=== PATIENT | male | born 1975 | race Caucasian/White ===

== ENCOUNTER 2016-07-07 07:55 | Inpatient (IN) | payer BC ==
[2016-07-07] MEDS ORDERED: SODIUM CHLORIDE 0.9% 1,000 ML IV STA (08:05)
[2016-07-07] MEDS ORDERED: DILTIAZEM 125 MG in SODIUM CHLORIDE 0.9% 100 ML IV ONE (08:07)
[2016-07-07] MEDS ORDERED: DILTIAZEM 5 MG/ML 5 ML VIAL IVP STA (08:07)
--- NOTE | 2016-07-07 08:09 | ED ---
General Adult HPI - General Chief complaint: Arrhythmia/Palpitations Stated complaint: heart flutter Time Seen by Provider: 07/07/16 08:02 Source: patient, RN notes reviewed Mode of arrival: wheelchair Limitations: no limitations - History of Present Illness Initial comments: Patient is a pleasant 40-year-old male presenting to the emergency Department with palpitations. Onset was around 20 or 30 minutes prior to arrival. Patient has had similar symptoms around 6 times previously. Patient was in the hospital a couple times previously and diagnosed with what he believes was atrial fibrillation however is not completely confident regarding this. Patient denies pain. Patient states he feels slightly short of breath associated with palpitations. No leg pain or leg swelling. - Related Data Home Medications Medication Instructions Recorded Confirmed Gabapentin [Neurontin] 100 mg PO TID 07/07/16 07/07/16 predniSONE See Taper PO DAILY 07/07/16 07/07/16 valACYclovir HCL [Valtrex] 1,000 mg PO TID 07/07/16 07/07/16 Allergies Allergy/AdvReac Type Severity Reaction Status Date / Time No Known Allergies Allergy Verified 07/07/16 08:00 Review of Systems ROS Statement: Those systems with pertinent positive or pertinent negative responses have been documented in the HPI. ROS Other: All systems not noted in ROS Statement are negative. Constitutional: Denies: fever Eyes: Denies: eye pain ENT: Denies: ear pain Respiratory: Reports: dyspnea. Denies: cough Cardiovascular: Reports: palpitations. Denies: chest pain Endocrine: Denies: fatigue Gastrointestinal: Denies: abdominal pain Genitourinary: Denies: dysuria Musculoskeletal: Denies: back pain Skin: Denies: rash Neurological: Denies: weakness Past Medical History Past Medical History: No Reported History History of Any Multi-Drug Resistant Organisms: None Reported Past Surgical History: No Surgical Hx Reported Past Psychological History: No Psychological Hx Reported Smoking Status: Current every day smoker Past Alcohol Use History: Occasional Past Drug Use History: None Reported General Exam Limitations: no limitations General appearance: alert, in no apparent distress Head exam: Present: atraumatic Eye exam: Present: normal appearance, PERRL ENT exam: Present: normal oropharynx Neck exam: Present: normal inspection Respiratory exam: Present: normal lung sounds bilaterally Cardiovascular Exam: Present: tachycardia, irregular rhythm Expanded Peripheral pulses: 2+: Radial (R), Radial (L), Dorsalis Pedis (R), Dorsalis Pedis (L) GI/Abdominal exam: Present: soft. Absent: tenderness Extremities exam: Present: normal inspection. 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 fib with RVR, rate 198. QRS 86. QT to 36. QTc 428. Normal axis. Normal QRS. Nonspecific ST-T. Medical Decision Making - Medical Decision Making Patient reexamined and resting comfortably in bed. Patient updated on results and plan. Case was discussed in detail with Dr. Cadena, who will admit for Dr. Gomes. Patient did receive IV bolus and infusion of Cardizem. Patient will be started on blood thinners. Admission orders written. Consult placed for cardiology. - Lab Data Result diagrams: 07/07/16 08:17 07/07/16 08:17 Lab Results 07/07/16 07/07/16 07/07/16 Range/Units 08:17 08:17 08:17 WBC 12.2 H (3.8-10.6) k/uL RBC 5.46 (4.30-5.90) m/uL Hgb 17.1 (13.0-17.5) gm/dL Hct 51.8 (39.0-53.0) % MCV 94.9 (80.0-100.0) fL MCH 31.3 (25.0-35.0) pg MCHC 32.9 (31.0-37.0) g/dL RDW 13.9 (11.5-15.5) % Plt Count 343 (150-450) k/uL Neutrophils % 65 % Lymphocytes % 26 % Monocytes % 6 % Eosinophils % 1 % Basophils % 0 % Neutrophils # 7.9 H (1.3-7.7) k/uL Lymphocytes # 3.1 (1.0-4.8) k/uL Monocytes # 0.7 (0-1.0) k/uL Eosinophils # 0.2 (0-0.7) k/uL Basophils # 0.1 (0-0.2) k/uL PT (9.0-12.0) sec INR (<1.1) APTT (22.0-30.0) sec Sodium 142 (137-145) mmol/L Potassium 4.2 (3.5-5.1) mmol/L Chloride 104 (98-107) mmol/L Carbon Dioxide 24 (22-30) mmol/L Anion Gap 14 mmol/L BUN 15 (9-20) mg/dL Creatinine 0.91 (0.66-1.25) mg/dL Est GFR (MDRD) Af Amer >60 (>60 ml/min/1.73 sqM) Est GFR (MDRD) Non-Af >60 (>60 ml/min/1.73 sqM) Glucose 100 H (74-99) mg/dL Calcium 10.0 (8.4-10.2) mg/dL Magnesium 1.8 (1.6-2.3) mg/dL Total Bilirubin 0.7 (0.2-1.3) mg/dL AST 32 (17-59) U/L ALT 77 H (21-72) U/L Alkaline Phosphatase 89 (38-126) U/L Total Creatine Kinase 60 (55-170) U/L CK-MB (CK-2) 0.6 (0.0-2.4) ng/mL CK-MB (CK-2) Rel Index 1.0 Troponin I <0.012 (0.000-0.034) ng/mL Total Protein 7.9 (6.3-8.2) g/dL Albumin 4.9 (3.5-5.0) g/dL TSH 1.830 (0.465-4.680) mIU/L Free T4 0.73 L (0.78-2.19) ng/dL 07/07/16 Range/Units 08:17 WBC (3.8-10.6) k/uL RBC (4.30-5.90) m/uL Hgb (13.0-17.5) gm/dL Hct (39.0-53.0) % MCV (80.0-100.0) fL MCH (25.0-35.0) pg MCHC (31.0-37.0) g/dL RDW (11.5-15.5) % Plt Count (150-450) k/uL Neutrophils % % Lymphocytes % % Monocytes % % Eosinophils % % Basophils % % Neutrophils # (1.3-7.7) k/uL Lymphocytes # (1.0-4.8) k/uL Monocytes # (0-1.0) k/uL Eosinophils # (0-0.7) k/uL Basophils # (0-0.2) k/uL PT 9.9 (9.0-12.0) sec INR 1.0 (<1.1) APTT 24.2 (22.0-30.0) sec Sodium (137-145) mmol/L Potassium (3.5-5.1) mmol/L Chloride (98-107) mmol/L Carbon Dioxide (22-30) mmol/L Anion Gap mmol/L BUN (9-20) mg/dL Creatinine (0.66-1.25) mg/dL Est GFR (MDRD) Af Amer (>60 ml/min/1.73 sqM) Est GFR (MDRD) Non-Af (>60 ml/min/1.73 sqM) Glucose (74-99) mg/dL Calcium (8.4-10.2) mg/dL Magnesium (1.6-2.3) mg/dL Total Bilirubin (0.2-1.3) mg/dL AST (17-59) U/L ALT (21-72) U/L Alkaline Phosphatase (38-126) U/L Total Creatine Kinase (55-170) U/L CK-MB (CK-2) (0.0-2.4) ng/mL CK-MB (CK-2) Rel Index Troponin I (0.000-0.034) ng/mL Total Protein (6.3-8.2) g/dL Albumin (3.5-5.0) g/dL TSH (0.465-4.680) mIU/L Free T4 (0.78-2.19) ng/dL - Radiology Data Radiology results: image reviewed (One view chest x-ray shows no acute process.) Critical Care Time Critical Care Time: Yes Total Critical Care Time: 33 Disposition Clinical Impression: Atrial fibrillation with RVR Disposition: ADMITTED IP TO THIS HOSP
[2016-07-07 08:38] LABS: Basophils # (A) 0.1 k/uL (0-0.2); Basophils % (A) 0 %; CH 32.6; CHCM 34.5; Eosinophils # (A) 0.2 k/uL (0-0.7); Eosinophils % (A) 1 %; HCT 51.8 % (39.0-53.0); HDW 2.49; HGB 17.1 gm/dL (13.0-17.5); Luc % (Auto) 3; Lymphocytes # (A) 3.1 k/uL (1.0-4.8); Lymphocytes % (A) 26 %; MCH 31.3 pg (25.0-35.0); MCHC 32.9 g/dL (31.0-37.0); MCV 94.9 fL (80.0-100.0); Mean Platelet Volume 6.9; Monocytes # (A) 0.7 k/uL (0-1.0); Monocytes % (A) 6 %; Neutrophils # (A) 7.9 k/uL (1.3-7.7); Neutrophils % (A) 65 %; Partial Thromboplastin Time 24.2 sec (22.0-30.0); Prothrombin Time 9.9 sec (9.0-12.0); RBC 5.46 m/uL (4.30-5.90); RDW 13.9 % (11.5-15.5); WBC 12.2 k/uL (3.8-10.6); WBC (Perox) 12.45
[2016-07-07 08:45] LABS: ALT 77 U/L (21-72); AST 32 U/L (17-59); Alkaline Phosphatase 89 U/L (38-126); Anion Gap 14 mmol/L; Blood Urea Nitrogen 15 mg/dL (9-20); Carbon Dioxide 24 mmol/L (22-30); Chloride 104 mmol/L (98-107); Glucose 100 mg/dL (74-99); Magnesium 1.8 mg/dL (1.6-2.3); Non-African American GFR(MDRD) >60 (>60 ml/min/1.73 sqM); Potassium 4.2 mmol/L (3.5-5.1); Sodium 142 mmol/L (137-145); Total Bilirubin 0.7 mg/dL (0.2-1.3); Total Protein 7.9 g/dL (6.3-8.2)
[2016-07-07 09:09] LABS: Creatine Kinase 60 U/L (55-170)
--- NOTE | 2016-07-07 09:14 | XR ---
EXAMINATION TYPE: XR chest 1V portable DATE OF EXAM: 07/07/2016 8:54 AM COMPARISON: 01/17/2009 HISTORY: Chest pain TECHNIQUE: Single frontal view of the chest is obtained. FINDINGS: There is no focal air space opacity, pleural effusion, or pneumothorax seen. The cardiac silhouette size is within normal limits. The osseous structures are intact. IMPRESSION: 1. No acute process.
[2016-07-07 09:21] LABS: Creatine Kinase MB 0.6 ng/mL (0.0-2.4); Troponin I <0.012 ng/mL (0.000-0.034)
[2016-07-07] MEDS ORDERED: HEPARIN SODIUM,PORCINE 5,000 UNIT/ML 1 ML VIAL IV PRN (09:35)
[2016-07-07] MEDS ORDERED: HEPARIN SODIUM,PORCINE 5,000 UNIT/ML 1 ML VIAL IV ONE (09:35)
[2016-07-07] MEDS ORDERED: HEPARIN SODIUM,PORCINE/D5W PMX 25,000 UNIT in DEXTROSE/WATER 1 500ML.BAG IV SCH (09:45)
--- NOTE | 2016-07-07 11:46 | ECHOF ---
Referral Reason:a fib MEASUREMENTS -------- HEIGHT: 170.2 cm WEIGHT: 82.1 kg BP: 112/82 RVIDd: 2.7 cm (< 3.3) IVSd: 1.1 cm (0.6 - 1.1) LVIDd: 4.5 cm (3.9 - 5.3) LVPWd: 1.1 cm (0.6 - 1.1) IVSs: 1.6 cm LVIDs: 3.3 cm LVPWs: 1.4 cm LA Diam: 3.5 cm (2.7 - 3.8) LAESV Index (A-L): 14.54 ml/m Ao Diam: 2.9 cm (2.0 - 3.7) AV Cusp: 1.9 cm (1.5 - 2.6) LA Diam: 3.2 cm (2.7 - 3.8) MV EXCURSION: 11.453 mm (> 18.000) MV EF SLOPE: 100 mm/s (70 - 150) EPSS: 0.7 cm FINDINGS -------- Atrial fibrillation. This was a technically good study. There is borderline concentric left ventricular hypertrophy. Overall left ventricular systolic function is normal with, an EF between 55 - 60 %. The right ventricle is normal in size. Normal LA size by volume 22+/-6 ml/m2. The right atrium is normal in size. The aortic valve is trileaflet and appears structurally normal. Mild mitral annular calcification present. Trace tricuspid regurgitation present. Pulmonic valve appears structurally normal. The aortic root size is normal. Normal inferior vena cava with normal inspiratory collapse consistent with estimated right atrial pressure of 5 mmHg. The pericardium is normal. CONCLUSIONS -------- 1. Atrial fibrillation. 2. Trace tricuspid regurgitation present. 3. Pulmonic valve appears structurally normal. 4. The aortic root size is normal. 5. The pericardium is normal. 6. This was a technically good study. 7. There is borderline concentric left ventricular hypertrophy. 8. Overall left ventricular systolic function is normal with, an EF between 55 - 60 %. 9. The right ventricle is normal in size. 10. Normal LA size by volume 22+/-6 ml/m2. 11. The right atrium is normal in size. 12. The aortic valve is trileaflet and appears structurally normal. 13. Mild mitral annular calcification present. PROTECTIVE SIGNAL OPERATIONS SUPERVISOR: Jermain Morales RDCS
[2016-07-07] MEDS ORDERED: PROPAFENONE 150 MG TAB PO STA (12:43)
--- NOTE | 2016-07-07 13:21 | P.HPIM ---
History of Present Illness H&P Date: 07/07/16 Chief Complaint: Palpitation This is a 40-year-old gentleman who presented to the emergency room with palpitation. Patient had no significant past medical history. Patient told me that he was at work when he noted that his heart was pounding and racing. He reports some shortness of breath. He denies any chest pain. He denies any headache or loss of consciousness. He was concerned that this episode was persistent and decided to come to the emergency room for further evaluation. On presentation, patient was noted to be in atrial fibrillation with rapid ventricular response. He was given IV Cardizem and started on a drip as well as IV heparin. He was admitted to telemetry floor for further evaluation. His heart rate is better controlled. Patient himself does not have any other concerns or complaints at this time. He told me that he was diagnosed with atrial fibrillation years ago but since then he did not take any medication and has been doing fairly well. Review of Systems Review of system: 14 points review of systems were obtained and were negative except to what were mentioned in the HPI. Past Medical History Past Medical History: Atrial Fibrillation Additional Past Medical History / Comment(s): Low back pain, R testicular cyst. Pt states he had shingelles 2 weeks ago and completed ABX-has dried lesion on back-"it was caught early". History of Any Multi-Drug Resistant Organisms: None Reported Past Surgical History: No Surgical Hx Reported Additional Past Surgical History / Comment(s): circumcism Past Anesthesia/Blood Transfusion Reactions: No Reported Reaction Past Psychological History: No Psychological Hx Reported Additional Psychological History / Comment(s): Pt resides with his girlfriend. He is independent. 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 Smoking Status: Current every day smoker Past Alcohol Use History: Daily Additional Past Alcohol Use History / Comment(s): Pt states he started smoking at the age of 16 yrs and has cut down to 5 cigarettes a day. He states he drinks a 6 pack of beer each day. He states he still drinks coffee, but no longer drinks Red Bull or Monsters anymore. Past Drug Use History: Marijuana Additional Drug Use History / Comment(s): Pt states he smokes marijuana on occasion. - Past Family History Father Family Medical History: No Reported History Additional Family Medical History / Comment(s): Father is healthy. Mother Family Medical History: No Reported History Additional Family Medical History / Comment(s): Mother is healthy. Medications and Allergies Home Medications Medication Instructions Recorded Confirmed Type Gabapentin [Neurontin] 100 mg PO TID 07/07/16 07/07/16 History predniSONE See Taper PO DAILY 07/07/16 07/07/16 History valACYclovir HCL [Valtrex] 1,000 mg PO TID 07/07/16 07/07/16 History Allergies Allergy/AdvReac Type Severity Reaction Status Date / Time No Known Allergies Allergy Verified 07/07/16 08:00 Physical Exam Vitals: Vital Signs Temp Pulse Pulse Resp BP BP Pulse Ox 07/07/16 11:45 97.8 F 96 16 143/81 98 07/07/16 10:43 98.7 F 112 H 18 122/85 97 07/07/16 10:32 90 18 110/72 96 07/07/16 10:25 100 110/75 95 07/07/16 10:05 94 14 108/73 96 Intake and Output 07/06/16 07/07/16 07/07/16 22:59 06:59 14:59 Other: Voiding Method Urinal General: The patient is awake and alert, in no distress, and does not appear acutely ill. Eye: extra-ocular movements are intact; there is normal conjunctiva bilaterally. . Neck: The neck is supple, there is no tenderness or JVD. Cardiovascular: Heart rate is irregular. Normal S1-S2, no S3-S4, no murmurs. Respiratory: Lungs clear to auscultation bilaterally with no wheezes rhonchi or rales. Gastrointestinal: Abdomen is soft, nontender, nondistended, with no organomegaly. . Musculoskeletal: Normal ROM, no tenderness, There is no pedal edema. Neurological: There are no obvious motor or sensory deficits. Speech is normal. Skin: Skin is warm and dry and no rashes or lesions are noted. Results CBC & Chem 7: 07/07/16 08:17 07/07/16 08:17 Thrombosis Risk Factor Assmnt - Choose All That Apply Any of the Below Risk Factors Present?: Yes Each Factor Represents 1 point: Obesity (BMI >25) Other Risk Factors: No Other congenital or acquired thrombophilia - If yes, enter type in comment: No Thrombosis Risk Factor Assessment Total Risk Factor Score: 1 Thrombosis Risk Factor Assessment Level: Low Risk Assessment and Plan Plan: 1. Atrial fibrillation with rapid ventricular response 2. Leukocytosis most likely reactive with no evidence of infection This is a 40-year-old gentleman who presented to the hospital with atrial fibrillation and rapid ventricular response. he was seen and evaluated by cardiology. patient was started on IV Cardizem and was given IV and Rythmol as well. Electrolytes and thyroid function tests within acceptable range. Echocardiogram showed preserved ejection fraction with no significant valvular abnormality. We will continue current treatment and await further recommendations from cardiology. Continue supportive care and telemetry monitoring. Repeat lab work in the morning.
--- NOTE | 2016-07-07 13:44 | CONS ---
DATE OF CONSULTATION: CHIEF COMPLAINT: Palpitations. Mr. Julien is a 40-year-old gentleman with no significant past medical history who presented to hospital with sustained palpitations and was found to be in atrial fibrillation with rapid ventricular rate. At the moment he is on intravenous Cardizem, heparin with better rate control and is free of significant symptoms. The patient drinks regularly and drank quite a bit yesterday with the [employer]. The patient has a history of palpitations but has not had any work-up in the last 10 years. Past medical history is negative for hypertension, diabetes, dyslipidemia, congestive heart failure or coronary artery disease. There is a questionable history of palpitations and possible atrial fibrillation. Medications at home include: 1. Valtrex. 2. Prednisone. 3. Neurontin. ALLERGIES: No known drug allergies. FAMILY HISTORY: Negative for premature coronary artery disease. SOCIAL HISTORY: Significant for smoking and ETOH abuse. REVIEW OF SYSTEMS: HEENT: Unremarkable. CARDIAC: As described above. RESPIRATORY: Negative. GI: Negative. GENITOURINARY: Negative. Allergy/immunology: Negative. SKIN: Negative. MUSCULOSKELETAL: Negative. ENDOCRINE: Negative. Dermatology: Negative. CONSTITUTIONAL: Negative. Oncological: Negative. The rest of the system review is not relevant. On exam, heart rate is 96 beats per minute, blood pressure is 140/82, respirations 18. There is no jugular venous distention. Carotid upstroke is normal. There is no bruit. Chest exam reveals good air entry bilaterally. Heart exam reveals first and second heart sounds, irregular rhythm. No murmur. Abdomen soft, nontender. Exam of the extremities did not reveal edema. Peripheral pulses are felt. EKG shows atrial fibrillation with rapid ventricular rate. Hemoglobin is normal at 17.1, platelet count is 343. Creatinine is normal at 0.9. TSH is normal at 1.8. FT4 is 0.73. ASSESSMENT: New onset atrial fibrillation with rapid ventricular rate. PLAN: The patient is on intravenous heparin and Cardizem, which I am going to continue. I will obtain a 2-D echo to document his LV function and start him on Rythmol and reassess him tomorrow morning. If he is still in atrial fibrillation, I will perform a transesophageal echo followed by cardioversion.
[2016-07-07 16:21] LABS: Creatine Kinase 51 U/L (55-170)
[2016-07-07 16:34] LABS: Creatine Kinase MB 0.5 ng/mL (0.0-2.4); Troponin I <0.012 ng/mL (0.000-0.034)
[2016-07-07] MEDS: PROPAFENONE 150 MG TAB PO SCH ×3 (17:05→23:49)
[2016-07-07 23:19] LABS: Creatine Kinase 60 U/L (55-170)
[2016-07-07 23:32] LABS: Creatine Kinase MB 0.6 ng/mL (0.0-2.4); Troponin I <0.012 ng/mL (0.000-0.034)
[2016-07-08 04:27] LABS: Basophils # (A) 0.1 k/uL (0-0.2); Basophils % (A) 0 %; CH 32.3; CHCM 33.3; Eosinophils # (A) 0.1 k/uL (0-0.7); Eosinophils % (A) 1 %; HCT 49.7 % (39.0-53.0); HDW 2.44; Luc # (Auto) 0.14; Luc % (Auto) 1; Lymphocytes # (A) 2.1 k/uL (1.0-4.8); Lymphocytes % (A) 19 %; MCH 31.3 pg (25.0-35.0); MCHC 32.1 g/dL (31.0-37.0); MCV 97.4 fL (80.0-100.0); Monocytes # (A) 0.6 k/uL (0-1.0); Monocytes % (A) 6 %; Neutrophils # (A) 7.8 k/uL (1.3-7.7); Neutrophils % (A) 72 %; RDW 13.8 % (11.5-15.5); WBC 10.7 k/uL (3.8-10.6); WBC (Perox) 11.24
[2016-07-08 04:34] LABS: Cholesterol 229 mg/dL (<200); HDL Cholesterol 92 mg/dL (40-60); Triglycerides 153 mg/dL (<150)
[2016-07-08] MEDS ORDERED: ASPIRIN 325 MG TAB PO SCH (09:00)
--- NOTE | 2016-07-08 09:15 | PN ---
Wilton is a 40-year-old gentleman who is admitted to hospital with atrial fibrillation with rapid ventricular rate, converted to sinus rhythm after starting him on Rythmol. This morning he is doing well and is free of symptoms. Echocardiogram shows normal LV systolic function and an EKG on him shows sinus rhythm with a QRS duration less than 100 ms and QT NE intervals are within normal limits. I advised the patient to go home on aspirin and Rythmol for suppression as he has been having he has been very symptomatic with A. fib. 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 On exam today he is comfortable at rest. Vital signs are stable. There is no jugular venous distention. Chest exam reveals good air entry bilaterally. Heart exam reveals first and second heart sounds. No gallop. Exam of the extremities did not reveal edema. Peripheral pulses are felt. ASSESSMENT: Paroxysmal atrial fibrillation. PLAN: The patient is doing well. We will continue with aspirin and Rythmol. He does not need an anticoagulant. We will watch his EKG as outpatient and he will undergo an outpatient stress test.
[2016-07-08] MEDS: PROPAFENONE 150 MG TAB PO SCH ×2 (09:19→16:11)
[2016-07-08 11:08] VITALS: RESP 18
[2016-07-08 12:14] VITALS: PULSE 192
--- NOTE | 2016-07-08 16:19 | P.DS ---
Providers Date of admission: 07/07/16 09:35 Expected date of discharge: 07/08/16 Attending physician: Shey Preciado Primary care physician: Germaine Gomes [facility] Course: This is a 40-year-old gentleman who presented to the hospital with atrial fibrillation and rapid ventricular response. he was seen and evaluated by cardiology. patient was started on IV Cardizem and was given IV and Rythmol as well. Electrolytes and thyroid function tests within acceptable range. Echocardiogram showed preserved ejection fraction with no significant valvular abnormality. He does not need to be on anticoagulation. He was cleared by cardiology to be discharged home. He will continue with Rythmol and aspirin daily. He will follow-up with his primary care physician and cardiology as directed. Plan - Discharge Summary New Discharge Prescriptions: Aspirin EC [Ecotrin Low Dose] 81 mg PO DAILY #1 tablet. Propafenone [Rythmol] 150 mg PO BID #1 tablet Discharge Medication List Gabapentin [Neurontin] 100 mg PO TID 07/07/16 [History] valACYclovir HCL [Valtrex] 1,000 mg PO TID 07/07/16 [History] Aspirin EC [Ecotrin Low Dose] 81 mg PO DAILY #1 tablet. 07/08/16 [Rx] Propafenone [Rythmol] 150 mg PO BID #1 tablet 07/08/16 [Rx] Follow up Appointment(s)/Referral(s): Germaine Gomes DO [Primary Care Provider] - 07/11/16 10:15 am Leonard Mg MD [STAFF PHYSICIAN] - 07/15/16 3:15 pm Patient Instructions/Handouts: Atrial Fibrillation (DC) Discharge Disposition: HOME SELF-CARE
[2016-07-08 16:50] VITALS: BP 147/88; TEMP 97.7
== END 2016-07-08 17:04 | disposition home or self-care (01) | DRG 310 ==
LOC: EC 07:55 → 6SEL 09:35
PROVIDERS: ADMIT Internal Medicine; ATTEND Internal Medicine
DX: I48.0 Paroxysmal atrial fibrillation (principal); D72.829 Elevated white blood cell count, unspecified; F10.10 Alcohol abuse, uncomplicated; F12.90 Cannabis use, unspecified, uncomplicated; M54.5 Low back pain; F17.210 Nicotine dependence, cigarettes, uncomplicated; Z79.52 Long term (current) use of systemic steroids; Z79.899 Other long term (current) drug therapy
CPT/HCPCS: 36415; 71010; 80053; 80061; 82550; 82553; 83735; 84439; 84443; 84481; 84484; 85025; 85610; 85730; 93005; 93306; 96365; 96366; 96376; 99291